=== PATIENT | male | born 1960 | race Caucasian/White ===

== ENCOUNTER 2019-07-21 12:18 | Outpatient (CLI) | payer OTHER, SELFPAY ==
--- NOTE | 2019-07-21 13:43 | NEURO_ITS ---
TEST: Electroencephalogram DIAGNOSIS: SEIZURES PATIENT NUMBER: [id number] EEG NUMBER: CLINICAL HISTORY: EEG to rule out seizures. Patient states that he has been experiencing episodes of slurred speech and unaware of surroundings. No auras. After each episode, patient is not aware of the episode. Patient does not know if he loses consciousness. Last known episode was two weeks ago. CONDITION OF RECORDING: AWAKE EEG DESCRIPTION: Basic resting occipital frequency consists of moderate amounts of very well organized [id number] voltage 8-10hz alpha and mixed with low- voltage 15-18hz beta. During drowsiness, low voltage beta activity is seen diffusely and mixed with waxing and waning posterior alpha rhythm. Intermittent, 6-7 hz theta is seen. Hyperventilation produced normal and symmetrical build-up. Multiple muscle artifacts are seen throughout the tracing particularly during wakefulness, drowsiness, and sleep. Photic Stimulation produced normal drive. Non-paroxysmal, non-focal, and non-localizing. IMPRESSION: No significant abnormalities noted. MTDD
== END 2019-07-21 12:19 | disposition home or self-care (01) ==
PROVIDERS: PCP Psychiatry & Neurology Neurology; Visit Provider Psychiatry & Neurology Neurology
DX: R56.9 Unspecified convulsions (principal)
CPT/HCPCS: 95816

== ENCOUNTER 2021-12-19 12:45 | Outpatient (CLI) | payer OTHER, SELFPAY ==
--- NOTE | 2021-12-20 09:46 | WPDNEUROLOGY ---
Neurology EEG Report General Information Date of Study: 12/19/21 TEST eeg DIAGNOSIS seizures CONDITION OF RECORDING awake drowsy and sleep EEG NUMBER [id number] CLINICAL HISTORY patient reports he had a head injury couple of months ago and had a seizure EEG DESCRIPTION basic resting occipital frequency consists of low to medium voltage 8 to 9 hertz per 2nd alpha admixed low 15 beta. Low to medium voltage 6 to 7 hertz per 2nd theta activity seen during drowsiness admixed with waxing and waning posterior alpha rhythm. Bilateral symmetrical sleep activity seen during sleep. Hyperventilation not done. Photic stimulation produced normal drive. Non paroxysmal. Nonfocal. Nonlateralizing. IMPRESSION Normal rectal
== END 2021-12-19 12:46 | disposition home or self-care (01) ==
PROVIDERS: PCP Psychiatry & Neurology Neurology; Visit Provider Psychiatry & Neurology Neurology
DX: R56.9 Unspecified convulsions (principal)
CPT/HCPCS: 95816